=== PATIENT | female | born 1940 | race Caucasian/White ===

== ENCOUNTER → 2016-12-30 | Outpatient (CLI) | payer MEDICARE, OTHER ==
[~2016-12-30] MED LIST: AMLO10TA2 PO; ASPI81TA45 PO; CENT1TAB PO; DIOV320T PO; GABA-283 PO; GLIM2TAB PO; LIPITOR PO; MAGN200T3 PO; METF500T4 PO; METO1TAB33 PO; NAPR250T4 PO; TYLE325T5 PO
--- NOTE | 2016-12-30 10:50 | REP ---
RENAL ULTRASOUND: 12/30/2016. COMPARISON: Ultrasound 06/03/2014, CT 01/30/2015, 07/18/2014. CLINICAL HISTORY: Renal cysts. FINDINGS: The right kidney is 11.4 x 5.9 x 4.8 cm. There is evidence of a column of Nino but no definite right renal mass. The tiny cortical cyst seen on CT is not visible by ultrasound. Body habitus considerations limit this examination. In the renal pelvis, there may be a parapelvic cyst 12 x 9 x 14 mm with good through transmission. The left kidney shows a small cyst 7 mm lower pole. The interpolar region shows a 11 mm complex cyst with some internal echoes suggested mid pole laterally corresponding to CT finding and similar size to slightly smaller. No hydronephrosis, hydroureter, renal stone or perinephric fluid. Visualized bladder only partially filled but grossly unremarkable. IMPRESSION: 1. Limited exam due to body habitus. Not all cysts visible on CT are visible on this ultrasound. One lower pole cortical cyst 7 mm on the left and interpolar complex cortical cyst suggested about 11 mm on that left side same or slightly smaller than previous study. 2. Questionable parapelvic cyst on the right. Due to body habitus considerations, level of diagnostic confidence is not high. Consider CT followup. Signed by Joni Mejia MD 12/30/2016 03:51 P
== END ==
LOC: M RAD 09:50
PROVIDERS: ATTEND Internal Medicine
DX: N28.1 Cyst of kidney, acquired (principal)

== ENCOUNTER → 2018-01-18 | Outpatient (REF) | payer MEDICARE, OTHER ==
[2018-01-18 19:08] LABS: RHEUMATOID FACTOR QUANT < 10.0 IU/ML (<15.0)
[2018-01-21 00:06] LABS: CYCLIC CITRULLINATED PEPTIDE 5 units (0-19)
[2018-01-21 00:06] LABS: ANTINUCLEAR ANTIBODIES DIRECT Negative (Negative); Lyme Disease IgG/IgM Antibodie <0.91 ISR (0.00-0.90); Lyme Disease IgM Ab Quantitati <0.80 index (0.00-0.79)
== END ==
LOC: M LAB REF 17:44
DX: M25.50 Pain in unspecified joint (principal)
CPT/HCPCS: 86038

== ENCOUNTER → 2020-01-24 | Outpatient (CLI) | payer MEDICARE, OTHER ==
[~2020-01-24] MED LIST changes: -AMLO10TA2 PO; +AMLO1TAB25 PO; -GABA-283 PO; +GABA-845 PO; -GLIM2TAB PO; +GLIM2TAB4 PO; +ISOVUE-370 76% 100ML VIAL As Ordered ONE; +METF-838 PO; -METF500T4 PO
--- NOTE | 2020-01-29 15:02 | REP ---
CT ABDOMEN AND PELVIS WITHOUT AND WITH INTRAVENOUS (IV) CONTRAST: CT UROGRAPHY PROTOCOL HISTORY: Renal cysts. COMPARISON CT STUDY: 01/08/2019 and 01/30/2015. CT CONTRAST DOSE: 100 mL of intravenous Isovue-[address] FINDINGS: Preliminary digital funeral planning counselor radiograph is unremarkable. The lung bases are clear on axial CT images. There are surgical clips in the right upper quadrant anterior abdominal wall. There are clips in the gallbladder fossa post cholecystectomy. No focal hepatic or splenic lesion is seen. Normal adrenal glands are observed. There are two or three punctate calcifications in the pancreas question prior chronic pancreatitis. No cyst or mass is seen. No retroperitoneal mass or adenopathy is observed. The kidneys enhance symmetrically. No hydronephrosis is seen. There is a 15-mm hyperdense cyst in the left mid kidney lateral cortex. This is very slightly enlarged. It measured [address] study in 01/[address] study in 12/2018. There is no observable contrast enhancement on dual phase postcontrast imaging in this hyperdense cyst. There is a peripheral cortical cyst in the lower pole of the right kidney, which measures 10 mm. No other renal cyst is seen. Vascular calcification is noted in the abdominal aorta, which is normal in caliber and in the iliac arteries. There is left colonic diverticulosis without CT evidence of diverticulitis. Small and large intestinal bowel loops are unremarkable. No abdominal wall defect is seen. IMPRESSION: Slight gradual enlargement in the previously noted hyperdense cyst in the left mid kidney, now 15 mm. No contrast enhancement seen. Small benign cyst on the right. Post cholecystectomy changes. Two or three punctate calcifications in the pancreas. MTDD
== END ==
LOC: M RAD 10:23
PROVIDERS: ATTEND Nurse Practitioner Women's Health
DX: N28.1 Cyst of kidney, acquired (principal); Z90.49 Acquired absence of other specified parts of digestive tract
CPT/HCPCS: 74178; Q9967

== ENCOUNTER → 2020-01-29 | Outpatient (REF) | payer MEDICARE, OTHER ==
[~2020-01-29] MED LIST changes: -ISOVUE-370 76% 100ML VIAL As Ordered ONE
== END ==
LOC: M WUC 14:53
PROVIDERS: ATTEND Physician Assistant
DX: N39.0 Urinary tract infection, site not specified (principal)

== ENCOUNTER → 2020-02-13 | Outpatient (REF) | payer MEDICARE, OTHER ==
[2020-02-13 13:37] LABS: APPEARANCE, URINE HAZY (CLEAR); BACTERIA, URINE AUTO NEGATIVE (NEGATIVE); BILIRUBIN, URINE AUTO NEGATIVE (NEGATIVE); BLOOD, URINE BLOOD NEGATIVE (NEGATIVE); COLOR, URINE YELLOW (YELLOW); GLUCOSE, URINE (UA) AUTO NEGATIVE (NEGATIVE); KETONE, URINE AUTO TRACE mg/dL (NEGATIVE); LEUKOCYTE ESTERASE, URINE AUTO 3+ (NEGATIVE); MUCUS, URINE SMALL (NEGATIVE); NITRITE, URINE AUTO NEGATIVE (NEGATIVE); PROTEIN, URINE AUTO NEGATIVE (NEGATIVE); RBC, URINE AUTO 3 /HPF (0-3); SPECIFIC GRAVITY URINE AUTO 1.018 (1.002-1.035); SQUAMOUS EPITHELIAL CELL UR AU 3 /HPF (0-6); UROBILINOGEN, URINE AUTO 0.2 mg/dL (0.0-2.0); WBC, URINE AUTO 30 /HPF (0-3)
== END ==
LOC: M SMT 13:12
PROVIDERS: ATTEND Nurse Practitioner Women's Health
DX: R30.0 Dysuria (principal)
CPT/HCPCS: 81001; 87086; G0463

== ENCOUNTER 2020-03-16 20:18 | Emergency (ER) | payer MEDICARE, OTHER ==
[~2020-03-16] VITALS: Ht 162.6 cm; Wt 87.6 kg
[2020-03-16] MEDS ORDERED: NITROGLYCERIN 0.4 MG SUBL TABLET SL STA (21:10)
--- NOTE | 2020-03-16 21:10 | REPVR ---
PROCEDURE INFORMATION: Exam: XR Chest, 1 View Exam date and time: 03/16/2020 8:45 PM Age: 80 years old Clinical indication: Other: Cp; Additional info: Chest pain TECHNIQUE: Imaging protocol: XR of the chest Views: 1 view. COMPARISON: CR Chest, 1 view 01/23/2014 5:58 PM FINDINGS: Lungs: Unremarkable. No consolidation. Pleural space: Unremarkable. No pleural effusion. No pneumothorax. Heart/Mediastinum: Unremarkable. No cardiomegaly. Bones/joints: Unremarkable. Other findings: Bilateral apices are obscured by patient's chin. IMPRESSION: No acute abnormality. Electronically signed by: Hira Mendoza On 03/16/2020 21:10:24 PM
[2020-03-16] MEDS ORDERED: ASPIRIN 81 MG CHEW TABLET PO ONE (21:15)
[2020-03-16 21:18] LABS: BASO # 0.1 10^3/uL (0.0-0.2); BASO % 0.5 % (0.0-1.0); EOS # 0.2 10^3/uL (0.0-0.5); EOS % 1.4 % (0.0-3.0); HEMOGLOBIN 13.5 g/dl (12.0-15.5); LYMPH # 2.7 10^3/uL (1.5-5.0); LYMPH % 21.3 % (24.0-44.0); MEAN CORPUSCULAR HEMOGLOBIN 30.8 pg (27.0-33.0); MEAN CORPUSCULAR HGB CONC 32.9 g/dl (32.0-36.5); MEAN CORPUSCULAR VOLUME 93.4 fl (80.0-96.0); MONO # 0.8 10^3/uL (0.0-0.8); MONO % 6.2 % (0.0-5.0); NEUTROPHILS % 70.3 % (36.0-66.0); PLATELET COUNT, AUTOMATED 427 10^3/uL (150-450); RED BLOOD COUNT 4.39 10^6/uL (4.00-5.40); WHITE BLOOD COUNT 12.8 10^3/uL (4.0-10.0)
[2020-03-16] MEDS ORDERED: IRBE300T7 PO (21:19)
[2020-03-16 21:44] LABS: BLOOD UREA NITROGEN 24 MG/DL (7-18); CALCIUM LEVEL 9.7 MG/DL (8.8-10.2); CARBON DIOXIDE LEVEL 25 MEQ/L (21-32); CHLORIDE LEVEL 101 MEQ/L (98-107); CREATININE FOR GFR 1.08 MG/DL (0.55-1.30); GLOMERULAR FILTRATION RATE 52.1 (>39); GLUCOSE, FASTING 306 MG/DL (70-100); POTASSIUM SERUM 3.7 MEQ/L (3.5-5.1); SODIUM LEVEL 137 MEQ/L (136-145)
[2020-03-16 22:07] LABS: ALBUMIN 3.9 GM/DL (3.2-5.2); ALT/SGPT 28 U/L (12-78); BILIRUBIN,DIRECT < 0.1 MG/DL (0.0-0.2); BILIRUBIN,TOTAL 0.2 MG/DL (0.2-1.0)
[2020-03-16] MEDS ORDERED: HEPARIN DRIP 25,000 UNITS in IV 1 EA IV SCH (23:49)
[2020-03-17] MEDS ORDERED: HEPARIN SOD (PORCINE) 5000UNITS/ML 1ML VIAL/SYRINGE IV ONE
[2020-03-17] MEDS ORDERED: CLOPIDOGREL 300 MG TAB (PLAVIX) PO ONE
[2020-03-17 00:25] LABS: INR 0.96; PARTIAL THROMBOPLASTIN TIME 24.9 SECONDS (24.2-38.5)
[2020-03-17] MEDS ORDERED: METOPROLOL TART 25 MG TABLET PO ONE (00:45)
[2020-03-17 01:05] VITALS: BP 170/89
[2020-03-17 01:30] VITALS: BP 163/70
--- NOTE | 2020-03-17 05:38 | ECGEPIP ---
[facility] - ED Test Date: 2020-03-16 Pat Name: DHAVAL CLEARY Department: Room: - Gender: Female Career [employer] Advisor: SARAI : 1940 Requested By: GLADIS VENTURA Order Number: [id number] Reading MD: Laurent Mathias Measurements Intervals [place] Rate: 106 P: [place]: 0 QRS: 9 QRSD: 86 T: 57 QT: 317 QTc: 422 Interpretive Statements SINUS TACHYCARDIA LOW QRS VOLTAGE IN PRECORDIAL LEADS SEPTAL MYOCARDIAL INFARCTION, OF INDETERMINATE AGE NO PRIORS FOR COMPARISON Electronically Signed on 03-17-2020 5:37:43 EST by Laurent Mathias
--- NOTE | 2020-03-17 05:39 | ECGEPIP ---
[facility] - ED Test Date: 2020-03-16 Pat Name: DHAVAL CLEARY Department: Room: - Gender: Female Tour Leader: SARAI : 1940 Requested By: GLADIS VENTURA Order Number: [id number] Reading MD: Laurent Mathias Measurements Intervals [place] Rate: 99 P: 53 [place]: 192 QRS: 1 QRSD: 76 T: 67 QT: 329 QTc: 422 Interpretive Statements SINUS RHYTHM LOW QRS VOLTAGE IN PRECORDIAL LEADS SEPTAL MYOCARDIAL INFARCTION, OF INDETERMINATE AGE SIMILAR TO PRIOR ON SAME DATE Electronically Signed on 03-17-2020 5:39:02 EST by Laurent Mathias
== END 2020-03-17 01:44 | disposition short-term general hospital (02) ==
LOC: M ED 20:18
DX: I20.0 Unstable angina (principal); R00.0 Tachycardia, unspecified; R11.2 Nausea with vomiting, unspecified; I10 Essential (primary) hypertension; E11.9 Type 2 diabetes mellitus without complications; E78.5 Hyperlipidemia, unspecified; Z91.018 Allergy to other foods; Z91.040 Latex allergy status; Z79.899 Other long term (current) drug therapy; Z79.82 Long term (current) use of aspirin; Z79.84 Long term (current) use of oral hypoglycemic drugs; Z79.1 Long term (current) use of non-steroidal anti-inflammatories (NSAID)
CPT/HCPCS: 71045; 80048; 80076; 84484; 85025; 85610; 85730; 93005; 93041; 94760; 96374; 99285; J1644; U0002

== ENCOUNTER 2020-03-21 11:46 | Emergency (ER) | payer MEDICARE, OTHER ==
[~2020-03-21] VITALS: Ht 160 cm; Wt 83.4 kg
[~2020-03-21 11:46] MED LIST changes: +IRBE300T7 PO
[2020-03-21] MEDS ORDERED: NS 500 ML IV ONE (12:00)
[2020-03-21] MEDS ORDERED: GI COCKTAIL 50ML BTL(HYOSCYAMINE/MAALOX/LIDOCAINE VISCOUS)(1:3:1) PO ONE (12:00)
[2020-03-21] MEDS ORDERED: ONDANSETRON 4MG/2ML VIAL As Ordered ONE (12:27)
[2020-03-21] MEDS ORDERED: fentaNYL 100 MCG/2 ML INJECTION (J3010) As Ordered ONE (12:27)
[2020-03-21 12:30] LABS: BASO # 0.1 10^3/uL (0.0-0.2); BASO % 0.6 % (0.0-1.0); EOS # 0.2 10^3/uL (0.0-0.5); EOS % 1.5 % (0.0-3.0); HEMOGLOBIN 12.6 g/dl (12.0-15.5); LYMPH # 1.8 10^3/uL (1.5-5.0); LYMPH % 14.3 % (24.0-44.0); MEAN CORPUSCULAR HGB CONC 32.3 g/dl (32.0-36.5); MEAN CORPUSCULAR VOLUME 95.8 fl (80.0-96.0); MONO # 0.8 10^3/uL (0.0-0.8); MONO % 6.5 % (0.0-5.0); NEUTROPHILS # 9.5 10^3/uL (1.5-8.5); NEUTROPHILS % 76.6 % (36.0-66.0); PLATELET COUNT, AUTOMATED 437 10^3/uL (150-450); RED BLOOD COUNT 4.07 10^6/uL (4.00-5.40); WHITE BLOOD COUNT 12.4 10^3/uL (4.0-10.0)
[2020-03-21] MEDS ORDERED: ONDANSETRON 4MG/2ML VIAL IV ONE (12:30)
[2020-03-21] MEDS ORDERED: fentaNYL 100 MCG/2 ML INJECTION (J3010) IV ONE ×2 (12:30→13:15)
[2020-03-21] MEDS ORDERED: NITROGLYCERIN/D5W 100MCG/ML 25 MG in IV 1 EA IV SCH (12:30)
--- NOTE | 2020-03-21 12:42 | REP ---
INDICATION: CHEST PAIN. COMPARISON: March 16, 2020.. TECHNIQUE: Semi-erect portable chest radiograph. FINDINGS: Monitoring electrodes are seen. Heart size is borderline unchanged from March 16, 2020 study. There is a granulomatous calcification in the left base. No infiltrate is seen. Pleural angles are sharp. Pulmonary vasculature is not increased. IMPRESSION: Borderline heart size. No acute abnormality. <Electronically signed by Sergey Hoskins > 03/21/20 [id number]
[2020-03-21] MEDS ORDERED: TENECTEPLASE 50 MG KIT (TNKase) (J3101 PER 1MG) IV ONE (12:45)
[2020-03-21] MEDS ORDERED: ASPIRIN 81 MG CHEW TABLET PO ONE (12:45)
[2020-03-21] MEDS ORDERED: HEPARIN SOD (PORCINE) 5000UNITS/ML 1ML VIAL/SYRINGE IV ONE (12:45)
[2020-03-21] MEDS ORDERED: HEPARIN DRIP 25,000 UNITS in IV 1 EA IV SCH (12:45)
[2020-03-21 12:58] LABS: PROTHROMBIN TIME 13.4 SECONDS (12.5-14.3)
[2020-03-21 12:59] LABS: PARTIAL THROMBOPLASTIN TIME 25.3 SECONDS (24.2-38.5)
[2020-03-21 13:20] VITALS: BP 114/64
[2020-03-21] MEDS ORDERED: NS 1,000 ML IV ONE (13:30)
[2020-03-21 14:23] LABS: ALT/SGPT 41 U/L (12-78); BILIRUBIN,DIRECT 0.3 MG/DL (0.0-0.2); BILIRUBIN,TOTAL 0.5 MG/DL (0.2-1.0); BLOOD UREA NITROGEN 30 MG/DL (7-18); CALCIUM LEVEL 8.6 MG/DL (8.8-10.2); CARBON DIOXIDE LEVEL 20 MEQ/L (21-32); CHLORIDE LEVEL 111 MEQ/L (98-107); CK-MB VALUE MASS 1.6 NG/ML (<3.6); CPK CREATINE PHOSPHOKINASE 59 U/L (26-192); CREATININE FOR GFR 0.78 MG/DL (0.55-1.30); FREE T4 1.47 NG/DL (0.76-1.46); GLOMERULAR FILTRATION RATE > 60.0 (>39); GLUCOSE, FASTING 220 MG/DL (70-100); LIPASE 207 U/L (73-393); MB/CK RELATIVE INDEX 2.71 (< OR =4); NT-PRO BNP 829 PG/ML (<450); POTASSIUM SERUM 4.3 MEQ/L (3.5-5.1); SODIUM LEVEL 142 MEQ/L (136-145); TOTAL PROTEIN 6.8 GM/DL (6.4-8.2); TROPONIN I 0.11 NG/ML (< 0.10)
--- NOTE | 2020-03-21 16:53 | ECGEPIP ---
[facility] - ED Test Date: 2020-03-21 Pat Name: DHAVAL CLEARY Department: Room: - Gender: Female [employer] Con[employer] Blower: : 1940 Requested By: German Self Order Number: [id number] Reading MD: German Self Measurements Intervals [place] Rate: 75 P: 45 [place]: 199 QRS: -12 QRSD: 84 T: 5 QT: 353 QTc: 397 Interpretive Statements SINUS RHYTHM LOW QRS VOLTAGE IN PRECORDIAL LEADS SEPTAL MYOCARDIAL INFARCTION, POSSIBLY ACUTE ST ELEVATION, CONSIDER ANTERIOR INJURY ACUTE [place] CLINICAL CORRELATION ADVISED CW 03/16/20 RATE DECREASED NEW STEMI Electronically Signed on 03-21-2020 16:53:07 EST by German Self
== END 2020-03-21 13:41 | disposition short-term general hospital (02) ==
LOC: M ED 11:46
DX: I21.3 ST elevation (STEMI) myocardial infarction of unspecified site (principal); Z98.61 Coronary angioplasty status; I10 Essential (primary) hypertension; E78.5 Hyperlipidemia, unspecified; I25.2 Old myocardial infarction; E11.9 Type 2 diabetes mellitus without complications; Z91.018 Allergy to other foods; Z91.040 Latex allergy status; Z79.899 Other long term (current) drug therapy; Z79.02 Long term (current) use of antithrombotics/antiplatelets; Z79.82 Long term (current) use of aspirin; Z79.1 Long term (current) use of non-steroidal anti-inflammatories (NSAID)
CPT/HCPCS: 71045; 80048; 80076; 82550; 82553; 83690; 83880; 84439; 84443; 84484; 85025; 85610; 85730; 87631; 93005; 93041; 94760; 96365; 96367; 96375; 96376; 99285; J1644; J2405; J3010; J3101